=== PATIENT | male | born 1970 | race African-American/Black ===

== ENCOUNTER 2018-08-16 12:47 | Inpatient (IN) | payer SELFPAY ==
[~2018-08-16] VITALS: Ht 190.5 cm; Wt 155.7 kg
[2018-08-16] MEDS ORDERED: IPRATROPIUM BROMIDE (0.02%) 0.5MG/2.5ML NEB HHN STA (13:55)
[2018-08-16] MEDS ORDERED: ALBUTEROL (0.083%) 2.5MG/3ML NEB HHN STA (13:55)
[2018-08-16] MEDS ORDERED: METHYLPREDNISOLONE SOD SUCC 125 MG/2 ML VIAL IV ONE (14:00)
[2018-08-16] MEDS ORDERED: SODIUM CHLORIDE 0.9% 1000ML BAG (SEPSIS BOLUS) IV ONE (14:00)
[2018-08-16] MEDS ORDERED: LEVOFLOXACIN 750MG PREMIX 150 ML IV ONE (14:00)
[2018-08-16 14:32] LABS: BASOPHILS % 0.3 % (0.0-2.0); EOSINOPHILS % 0.6 % (0.0-5.0); HEMATOCRIT. 41.9 % (42.0-52.0); LYMPHOCYTES % 7.3 % (20.0-50.0); MEAN CORPUSCULAR HEMOGLOBIN 28.4 pg (28.0-32.0); MEAN CORPUSCULAR VOLUME 84.8 fL (80.0-94.0); MEAN PLATELET VOLUME 8.3 fl (7.4-10.4); NEUTROPHILS % 79.8 % (40.0-76.0); PLATELET 252 x1000/uL (130-400); RED BLOOD CELL COUNT 4.94 mill/uL (4.7-6.1)
[2018-08-16 14:38] LABS: CHLORIDE 99 mEq/L (98-107)
[2018-08-16 14:42] LABS: INR 1.3; PROTHROMBIN TIME 12.8 sec (9.1-11.1)
[2018-08-16] MEDS ORDERED: HYDRALAZINE 20MG/ML VIAL IV NR (15:15)
[2018-08-16 15:26] LABS: CLARITY URINE CLEAR (CLEAR); COLOR URINE DARK YELLOW (YELLOW); KETONES URINE NEGATIVE (NEGATIVE); LEUKOCYTE ESTERASE URINE NEGATIVE (NEGATIVE); NITRITE URINE NEGATIVE (NEGATIVE); OCCULT BLOOD URINE 2+ (NEGATIVE); PROTEIN URINE 2+ (NEGATIVE); SPECIFIC GRAVITY URINE 1.022 (1.005-1.030)
[2018-08-16] MEDS: FUROSEMIDE 40MG/4ML VIAL IVP NR ×2 (15:32→16:08)
[2018-08-16] MEDS ORDERED: LOSARTAN POTASSIUM 25 MG TABLET PO SCH (16:15)
[2018-08-16] MEDS ORDERED: NITROGLYCERIN 50MG PREMIX 250 ML IV ONE (16:15)
[2018-08-16] MEDS ORDERED: ACETAMINOPHEN 325MG TABLET PO PRN (18:45)
[2018-08-16] MEDS ORDERED: MAGNESIUM/ALUMINUM HYDROXIDE/SIMETHICONE 30ML UDC PO PRN (18:45)
[2018-08-16] MEDS ORDERED: DOCUSATE SODIUM 100MG CAPSULE PO PRN (18:45)
[2018-08-16] MEDS ORDERED: GUAIFENESIN 200MG/10ML SUGAR FREE UDC PO PRN (18:45)
[2018-08-16 20:41] LABS: *AMPHETAMINES SCREEN URINE NEGATIVE (NEGATIVE)
[2018-08-16 20:42] LABS: *BARBITURATES SCREEN URINE NEGATIVE (NEGATIVE); *BENZODIAZEPINES SCREEN URINE NEGATIVE (NEGATIVE); *COCAINE SCREEN URINE NEGATIVE (NEGATIVE); METHADONE URINE SCREEN NEGATIVE (NEGATIVE); OPIATES URINE SCREEN NEGATIVE (NEGATIVE); PHENCYCLIDINE URINE SCREEN NEGATIVE (NEGATIVE)
[2018-08-16 20:43] LABS: CANNABINOID URINE SCREEN NEGATIVE (NEGATIVE)
[2018-08-17 05:48] LABS: HEMOGLOBIN. 12.3 g/dL (14.0-18.0); MEAN CORPUSCULAR HEMOGLOBIN 28.1 pg (28.0-32.0); MEAN CORPUSCULAR VOLUME 84.4 fL (80.0-94.0); MEAN PLATELET VOLUME 8.3 fl (7.4-10.4); PLATELET 260 x1000/uL (130-400); RED BLOOD CELL COUNT 4.38 mill/uL (4.7-6.1); RED CELL DISTRIBUTION WIDTH 14.1 % (11.6-14.6)
[2018-08-17 06:39] LABS: PLATELET ESTIMATE NORMAL
[2018-08-17] MEDS: IPRATROPIUM/ALBUTEROL 0.5-3(2.5)MG/3ML NEB INH PRN (08:33)
[2018-08-17 09:10] LABS: BG BASE EXCESS 2.2 mmol/L (-2.0-2.0); BG BILEVEL POS AIRWAY PRESSURE 20/5; BG CARBOXYHEMOGLOBIN 0.9 % (0.5-1.5); BG FRACTION INSPIRED OXYGEN 60; BG HCO3 ACT 27.3 mmol/L (22.0-26.0); BG METHEMOGLOBIN 0.5 % (0.0-1.5); BG OXYGEN SATURATION 95.9 % (92.0-98.5); BG OXYHEMOGLOBIN 94.6 % (94.0-97.0); BG PCO2 43.9 mmHg (35.0-45.0); BG PH 7.411 (7.350-7.450); BG PO2 82.7 mmHg (75.0-100.0); BG SAMPLE SITE RIGHT RADIAL; BG TOTAL HEMOGLOBIN 13.4 g/dL (12.0-18.0); BG VENT MODE MASK - BIPAP; BG VENT RATE 14 set
[2018-08-17] MEDS ORDERED: HYDRALAZINE HCL 25MG TABLET PO SCH (14:00)
[2018-08-17] MEDS ORDERED: LOSARTAN POTASSIUM 50 MG TABLET PO NR (17:00)
[2018-08-17] MEDS ORDERED: PANTOPRAZOLE SODIUM 40 MG/VIAL IV NR (17:00)
[2018-08-17] MEDS ORDERED: CARVEDILOL 3.125 MG TABLET PO NR (17:00)
[2018-08-17] MEDS ORDERED: FUROSEMIDE 40MG/4ML VIAL IVP NR (17:00)
[2018-08-17] MEDS ORDERED: NITROGLYCERIN 50MG PREMIX 250 ML IV ONE (17:03)
[2018-08-18] VITALS (39 sets, daily range): BP systolic 119–186; BP diastolic 58–121
[2018-08-18] MEDS ORDERED: NITROGLYCERIN 50MG PREMIX 250 ML IV SCH (03:00)
[2018-08-18 05:56] LABS: BASOPHILS % 0.5 % (0.0-2.0); EOSINOPHILS % 0.5 % (0.0-5.0); HEMATOCRIT. 35.9 % (42.0-52.0); LYMPHOCYTES % 8.3 % (20.0-50.0); MEAN CORPUSCULAR HEMOGLOBIN 28.2 pg (28.0-32.0); MEAN CORPUSCULAR VOLUME 84.5 fL (80.0-94.0); MONOCYTES % 11.1 % (2.0-8.0); NEUTROPHILS % 79.6 % (40.0-76.0); PLATELET 278 x1000/uL (130-400); RED BLOOD CELL COUNT 4.25 mill/uL (4.7-6.1)
[2018-08-18] MEDS ORDERED: LOSARTAN POTASSIUM 25 MG TABLET PO SCH (09:00)
[2018-08-18] MEDS ORDERED: PANTOPRAZOLE SODIUM 40 MG/VIAL IV SCH (09:00)
[2018-08-18] MEDS ORDERED: CARVEDILOL 3.125 MG TABLET PO SCH ×2 (09:00→21:00)
[2018-08-18] MEDS ORDERED: LOSARTAN POTASSIUM 50 MG TABLET PO SCH (09:00)
[2018-08-18] MEDS ORDERED: FUROSEMIDE 40MG/4ML VIAL IVP NR (10:00)
[2018-08-18] MEDS: AMLODIPINE 5MG TABLET PO SCH ×2 (10:00→21:15)
[2018-08-18] MEDS: PANTOPRAZOLE SODIUM 40 MG/VIAL IV SCH (10:31)
[2018-08-18] MEDS: HYDRALAZINE HCL 50MG TABLET PO SCH ×2 (15:36→21:16)
[2018-08-18] MEDS: CLONIDINE 0.1MG TABLET PO SCH ×2 (15:36→21:15)
[2018-08-18 18:13] LABS: BG BASE EXCESS 5.2 mmol/L (-2.0-2.0); BG CARBOXYHEMOGLOBIN 0.4 % (0.5-1.5); BG DEOXYHEMOGLOBIN 5.5 % (0.0-5.0); BG FRACTION INSPIRED OXYGEN 28; BG METHEMOGLOBIN 0.4 % (0.0-1.5); BG OXYGEN SATURATION 94.5 % (92.0-98.5); BG OXYHEMOGLOBIN 93.7 % (94.0-97.0); BG PCO2 39.7 mmHg (35.0-45.0); BG PH 7.482 (7.350-7.450); BG PO2 73.5 mmHg (75.0-100.0); BG SAMPLE SITE RIGHT RADIAL; BG TOTAL HEMOGLOBIN 12.8 g/dL (12.0-18.0); BG VENT MODE NASAL CANNULA
[2018-08-18] MEDS: CARVEDILOL 6.25 MG TABLET PO SCH (21:15)
[2018-08-18] MEDS ORDERED: NITROGLYCERIN 50MG PREMIX 250 ML IV PRN (23:15)
[2018-08-19] VITALS (27 sets, daily range): BP systolic 107–152; BP diastolic 62–95
[2018-08-19] MEDS: HYDRALAZINE HCL 50MG TABLET PO SCH ×3 (07:02→22:30)
[2018-08-19] MEDS: CLONIDINE 0.1MG TABLET PO SCH ×3 (07:02→22:30)
[2018-08-19] MEDS: AMLODIPINE 5MG TABLET PO SCH ×2 (09:26→20:52)
[2018-08-19] MEDS: LOSARTAN POTASSIUM 25 MG TABLET PO SCH (09:26)
[2018-08-19] MEDS: CARVEDILOL 6.25 MG TABLET PO SCH ×2 (09:27→20:52)
[2018-08-19] MEDS: PANTOPRAZOLE SODIUM 40 MG/VIAL IV SCH (09:39)
[2018-08-19] MEDS: IPRATROPIUM/ALBUTEROL 0.5-3(2.5)MG/3ML NEB INH PRN (09:59)
[2018-08-20] VITALS (9 sets, daily range): BP systolic 123–151; BP diastolic 77–89
[2018-08-20] MEDS: CLONIDINE 0.1MG TABLET PO SCH (06:18)
[2018-08-20] MEDS: HYDRALAZINE HCL 50MG TABLET PO SCH (06:18)
[2018-08-20] MEDS: AMLODIPINE 5MG TABLET PO SCH (08:47)
[2018-08-20] MEDS: LOSARTAN POTASSIUM 25 MG TABLET PO SCH (08:47)
[2018-08-20] MEDS: PANTOPRAZOLE SODIUM 40 MG/VIAL IV SCH (08:48)
[2018-08-20] MEDS: CARVEDILOL 6.25 MG TABLET PO SCH (08:48)
[2018-08-21] MEDS ORDERED: FAMOTIDINE 20MG/2ML VIAL IV SCH (09:00)
== END 2018-08-20 18:31 | disposition home or self-care (01) | DRG 199 ==
LOC: ER 12:47 → CANRESERV 16:33 → ENRESERV 16:33 → EDBEDREQSVC 16:34 → CVICU 08-17 15:58 → ENRESERV 08-18 08:05 → 3WST 08-19 08:15
PROVIDERS: ADMIT Family Medicine Adult Medicine; ATTEND Family Medicine Adult Medicine
PROC: 5A09357 Assistance with Respiratory Ventilation, Less than 24 Consecutive Hours, Continuous Positive Airway Pressure (ICD-10-PCS; principal; 2018-08-17)
PROC: 5A09357 Assistance with Respiratory Ventilation, Less than 24 Consecutive Hours, Continuous Positive Airway Pressure (ICD-10-PCS; 2018-08-18)
PROC: 5A09357 Assistance with Respiratory Ventilation, Less than 24 Consecutive Hours, Continuous Positive Airway Pressure (ICD-10-PCS; 2018-08-19)
PROC: 5A09357 Assistance with Respiratory Ventilation, Less than 24 Consecutive Hours, Continuous Positive Airway Pressure (ICD-10-PCS; 2018-08-20)
DX: I16.0 Hypertensive urgency (principal); J96.00 Acute respiratory failure, unspecified whether with hypoxia or hypercapnia; I50.43 Acute on chronic combined systolic (congestive) and diastolic (congestive) heart failure; N17.9 Acute kidney failure, unspecified; E66.01 Morbid (severe) obesity due to excess calories; I42.9 Cardiomyopathy, unspecified; E44.1 Mild protein-calorie malnutrition; Z68.41 Body mass index [BMI] 40.0-44.9, adult; N18.9 Chronic kidney disease, unspecified; M06.9 Rheumatoid arthritis, unspecified; I13.0 Hypertensive heart and chronic kidney disease with heart failure and stage 1 through stage 4 chronic kidney disease, or unspecified chronic kidney disease; G47.33 Obstructive sleep apnea (adult) (pediatric); Z82.49 Family history of ischemic heart disease and other diseases of the circulatory system; Z88.8 Allergy status to other drugs, medicaments and biological substances
CPT/HCPCS: 36415; 36600; 71045; 76770; 80048; 80061; 80305; 82375; 82805; 83036; 83605; 83735; 83880; 84145; 84484; 87804; 93005; 93306; 93970; 94640; 94660; 96365; 96367; 96375; 96376; 99291; C9113; J0360; J1940; J1956; J2930; J3490; J7030; J7611; J7620